=== PATIENT | male | born 1995 | race Caucasian/White ===

== ENCOUNTER 2017-12-08 15:01 | Inpatient (IN) | payer OTHER ==
[2017-12-08] VITALS (10 sets, daily range): BP systolic 101–115; BP diastolic 56–73
[~2017-12-08] VITALS: Ht 180.3 cm; Wt 54.0 kg
[2017-12-08 15:27] LABS: BASOPHIL (%) 0.3 % (0-1); EOSINOPHIL (%) 0.2 % (0-5); HEMATOCRIT 41.7 % (38.0-50.0); HEMOGLOBIN 14.4 G/DL (12.5-16.6); IMMATURE GRANULOCYTE (%) 0.6 % (0.0-0.7); LYMPHOCYTE COUNT 1.3 K/uL (1.0-2.8); MCH 30.1 PG (29.0-34.0); MCHC 34.5 G/DL (30.0-36.0); MCV 87.1 FL (86-99); MONOCYTE COUNT 1.1 K/uL (0-0.8); NEUTROPHIL (%) 83.9 % (45-76); NEUTROPHIL COUNT 13.4 K/uL (1.8-6.4); PLATELET COUNT 195 K/uL (156-360); RBC DIS.WIDTH-CV 11.9 % (11.8-14.6); RBC DIS.WIDTH-SD 38.4 % (39-53); RED BLOOD COUNT 4.79 M/uL (4.00-5.50)
[2017-12-08 15:37] LABS: AMYLASE 45 IU/L (1-118); CHLORIDE 105 mEq/L (99-109); POTASSIUM 3.4 mEq/L (3.7-5.4); SODIUM 141 mEq/L (136-147)
[2017-12-08 15:39] LABS: GLUCOSE 99 mg/dL (70-99)
[2017-12-08 15:42] LABS: SERUM ETHYL ALCOHOL 27 mg/dL
[2017-12-08 15:43] LABS: CREATININE 0.9 mg/dL (0.6-1.3)
[2017-12-08 15:44] LABS: UREA NITROGEN (BUN) 13 mg/dL (9-23)
[2017-12-08 15:46] LABS: LIPASE 19 U/L (1.0-51.0)
[2017-12-08 15:54] LABS: GFR ESTIMATE (CALCULATED) > 59 mL/min/ (58.99-99999)
[2017-12-08 15:58] LABS: ALBUMIN 4.7 g/dL (3.2-4.8)
[2017-12-08 16:01] LABS: TOTAL PROTEIN 7.2 g/dL (6.4-8.3)
[2017-12-08 16:02] LABS: TOTAL BILIRUBIN 0.4 mg/dL (0.0-1.0)
[2017-12-08 16:03] LABS: ALKALINE PHOSPHATASE 61 IU/L (3-129)
[2017-12-08 16:06] LABS: AST (GOT) 62 IU/L (2-34); DIRECT BILIRUBIN 0.2 mg/dL (0.0-0.3)
[2017-12-08 16:07] LABS: ALT (GPT) 62 IU/L (3-49)
[2017-12-09] VITALS (9 sets, daily range): BP systolic 103–118; BP diastolic 55–68
[2017-12-09 06:17] LABS: HEMATOCRIT 34.6 % (38.0-50.0); MCH 29.5 PG (29.0-34.0); MCHC 33.8 G/DL (30.0-36.0); MCV 87.4 FL (86-99); PLATELET COUNT 152 K/uL (156-360); RBC DIS.WIDTH-SD 38.8 % (39-53); RED BLOOD COUNT 3.96 M/uL (4.00-5.50)
[2017-12-09 06:20] LABS: HEMOGLOBIN 11.7 G/DL (12.5-16.6)
[2017-12-09 06:30] LABS: ALKALINE PHOSPHATASE 40 IU/L (3-129); ALT (GPT) 32 IU/L (3-49); AST (GOT) 26 IU/L (2-34); CHLORIDE 105 MEQ/L (99-109); CREATININE 0.8 MG/DL (0.6-1.3); GFR ESTIMATE (CALCULATED) > 59 mL/min/ (58.99-99999); GLUCOSE 104 mg/dL (70-99); POTASSIUM 3.6 MEQ/L (3.7-5.4); SODIUM 139 MEQ/L (136-147); TOTAL BILIRUBIN 0.7 MG/DL (0.0-1.0); TOTAL PROTEIN 5.6 G/DL (6.4-8.3); UREA NITROGEN (BUN) 10 mg/dL (9-23)
[2017-12-10 00:55] VITALS: BP 100/66
[2017-12-10 04:00] VITALS: BP 102/64
[2017-12-10 07:35] VITALS: BP 102/60
[2017-12-10 11:39] VITALS: BP 105/62
[2017-12-10 15:20] VITALS: BP 126/66
[2017-12-10 22:00] VITALS: BP 110/55
[2017-12-11 00:06] VITALS: BP 122/70
[2017-12-11 04:17] VITALS: BP 115/69
[2017-12-11 07:45] VITALS: BP 119/67
[2017-12-11 11:53] VITALS: BP 109/66
[2017-12-11 14:50] VITALS: BP 125/77
== END 2017-12-11 19:45 | disposition left against medical advice (07) | DRG 200 ==
LOC: TRA 15:01 → 4EAST 18:16 → EDOF 18:16 → ENRESERV 18:22 → CANRESERV 18:22 → ENRESERV 20:11 → 4EAST 21:01
PROVIDERS: Emergency Medicine; Surgery
DX: S27.0XXA Traumatic pneumothorax, initial encounter (principal); S22.42XA Multiple fractures of ribs, left side, initial encounter for closed fracture; S27.321A Contusion of lung, unilateral, initial encounter; F17.210 Nicotine dependence, cigarettes, uncomplicated; F12.90 Cannabis use, unspecified, uncomplicated; Y93.23 Activity, snow (alpine) (downhill) skiing, snowboarding, sledding, tobogganing and snow tubing; Y92.39 Other specified sports and athletic area as the place of occurrence of the external cause; W17.89XA Other fall from one level to another, initial encounter; R40.2412 Glasgow coma scale score 13-15, at arrival to emergency department; Z91.14 Patient's other noncompliance with medication regimen; Z91.19 Patient's noncompliance with other medical treatment and regimen
CPT/HCPCS: 70450; 71045; 71046; 71260; 72125; 72129; 72132; 74177; 80048; 80053; 80076; 81003; 82150; 83690; 85025; 85027; 86850; 86900; 86901; 93005; 94799; 99281; 99285; G0480; J1650; J1885; J2250; J2405; J3010; J7050; J7120; Q0169